=== PATIENT | female | born 1980 | race Caucasian/White ===

== ENCOUNTER 2017-04-15 22:38 | Inpatient (IN) | payer OTHER ==
[2017-04-15] MEDS ORDERED: Sodium Chloride 0.9% 1,000 ML IV ONE (22:54)
--- NOTE | 2017-04-15 22:54 | C.PDOC ---
History Of Present Illness 36 year old female that is 16 weeks was seen at the ED 2 weeks ago for vaginal bleeding. An US was done showing a normal and she was D/C home. She has been doing well until tonight she when she began feeling cramps and noticed some vaginal spotting. 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 Upon arrival to the ED she delivered a 16 week still born baby, cord was clamped and cut. Placenta was not delivered. Time Seen by Provider: 04/15/17 22:51 History Per: Patient History/Exam Limitations: no limitations Onset/Duration Of Symptoms: Hrs Quality Of Discomfort: Cramping Alleviating Factors: None Recent travel outside of the [place]: No Additional History Per: Patient Past Medical History Reviewed: Historical Data, Nursing Documentation, Vital Signs Vital Signs: Last Vital Signs Temp 98.6 F 04/15/17 22:56 Pulse 102 H 04/15/17 22:56 Resp 18 04/15/17 22:56 BP 121/80 04/15/17 22:56 Pulse Ox 97 04/15/17 22:56 - Medical History PMH: Hiatal Hernia Surgical History: No Surg Hx Family History: States: Unknown Family Hx - Social History Hx Alcohol Use: No Hx Substance Use: No - Immunization History Hx Tetanus Toxoid Vaccination: No Hx Influenza Vaccination: No Hx Pneumococcal Vaccination: No Review Of Systems Constitutional: Negative for: Fever, Chills Cardiovascular: Negative for: Chest Pain, Palpitations Respiratory: Negative for: Cough, Shortness of Breath Gastrointestinal: Negative for: Nausea, Vomiting, Abdominal Pain Genitourinary: Positive for: Vaginal Discharge, Vaginal Bleeding Physical Exam - Physical Exam Appears: In Acute Distress Skin: Normal Color, Warm, Dry Head: Atraumatic, Normacephalic Neck: Normal ROM, Supple Cardiovascular: Rhythm Regular, No Murmur Respiratory: Normal Breath Sounds, No Rales, No Rhonchi, No Wheezing Gastrointestinal/Abdominal: Soft, No Tenderness Pelvic: Normal External Exam, Other (delivery of intact 16 week still born baby) Extremity: Normal ROM Neurological/Psych: Oriented x3, Normal Speech, Normal Cognition Gait: Steady ED Course And Treatment Progress Note: Patient seen in the ED by Dr Berman. She will be admitted to the wood veneer taper floor to deliver the afterbirth. Medical Decision Making Medical Decision Making: Impression : 36 y/o female seen in the ED for early delivery of her 16 week old baby. Plan: * Blood work ordered * IV fluids given Patient delivered a 16 week old baby in the ED cord was cut and patient will be moved upstairs. Disposition - Disposition Disposition: HOSPITALIZED Disposition Time: 23:16 Condition: STABLE - POA Present On Arrival: None - Clinical Impression Clinical Impression: Spontaneous miscarriage - Scribe Statement The provider has reviewed the documentation as recorded by the Scribe Magdy Mas All medical record entries made by the Armondibe were at my direction and personally dictated by me. I have reviewed the chart and agree that the record accurately reflects my personal performance of the history, physical exam, medical decision making, and the department course for this patient. I have also personally directed, reviewed, and agree with the discharge instructions and disposition.
[2017-04-15 22:59] VITALS: BMI 23.0
[2017-04-15 23:07] VITALS: RESP 18; O2SAT 97
--- NOTE | 2017-04-15 23:10 | CP.PCM.HP ---
History of Present Illness - History of Present Illness History of Present Illness: 36 yr at 15weeks came with c/o feet coming out of the vagina at 1 pm. pt was here 2 weeks ago with vaginal bleeding. pt has been on bed rest nd using progestrone supoositry. c/o some spotting yesteday. no pain or vb today. pt went to bathroom and something was coming out from the vagina. baby deliverd in er. obhx 1 x c/s, 1 x 13week loss pmh den med pnv, progestrone suppositry all nkda psh c/s soch de pelvic exam placente is still in . clamped. ut, 16weeks size, min bleeding abd soft,non tender Present on Admission - Present on Admission Any Indicators Present on Admission: No History of DVT/PE: No History of Uncontrolled Diabetes: No Urinary Catheter: No Decubitus Ulcer Present: No Past Patient History - Infectious Disease Hx of Infectious Diseases: None - Past Social History Smoking Status: Never Smoked - PSYCHIATRIC Hx Substance Use: No - SURGICAL HISTORY Hx Surgeries: Yes Hx Section: Yes - ANESTHESIA Hx Anesthesia: Yes Hx Anesthesia Reactions: No Meds Allergies/Adverse Reactions: Allergies Allergy/AdvReac Type Severity Reaction Status Date / Time No Known Allergies Allergy Verified 04/01/17 14:24 Physical Exam - Exam External exam: NORMAL EXTERNAL EXAM (with cod coming. placente still in) Results - Vital Signs Recent Vital Signs: Last Vital Signs Temp 98.6 F 04/15/17 22:56 Pulse 102 H 04/15/17 22:56 Resp 18 04/15/17 22:56 BP 121/80 04/15/17 22:56 Pulse Ox 97 04/15/17 22:56 Assessment & Plan - Assessment and Plan (Free Text) Assessment: 36yr s/o 16weeks non viable delivery/ placente in situ Plan: admit to l&d npo/ivf labs cyotec pitcin anceg 1 gm cont close observation
[2017-04-15 23:14] LABS: BASO % 0.1 % (0.0-2.0); EOS # 0.1 K/uL (0.0-0.7); EOS % 0.6 % (0.0-4.0); HEMATOCRIT 37.6 % (34.0-47.0); LYMPH # 3.4 K/uL (1.0-4.3); LYMPH % 17.3 % (20.0-40.0); MEAN CELL VOLUME 84.4 fL (81.0-99.0); MEAN CORPUSCULAR HEMOGLOBIN 28.7 pg (27.0-31.0); MONO % 4.9 % (0.0-10.0); RED CELL DISTRIBUTION WIDTH 13.3 % (11.5-14.5); WHITE BLOOD COUNT 19.8 K/uL (4.8-10.8)
[2017-04-15] MEDS ORDERED: Oxytocin 30 UNIT 30 UNITS/500 ML BAG IV PRN (23:23)
[2017-04-15 23:24] LABS: ALB/GLOB RATIO 1.1 (1.0-2.1); ALKALINE PHOSPHATASE 97 U/L (38-126); ALT/SGPT 32 U/L (9-52); AST/SGOT 24 U/L (14-36); BILIRUBIN,TOTAL 0.5 mg/dL (0.2-1.3); BLOOD UREA NITROGEN 4 mg/dL (7-17); CALCIUM 8.9 mg/dl (8.6-10.4); CARBON DIOXIDE 24 mmol/L (22-30); CHLORIDE 99 mmol/L (98-107); GFR AFRICAN-AMERICAN > 60; GLUCOSE,RANDOM 83 mg/dL (65-105); POTASSIUM 3.9 mmol/L (3.6-5.2); SODIUM 133 mmol/L (132-148); TOTAL PROTEIN 7.7 g/dL (6.3-8.3)
[2017-04-15] MEDS ORDERED: Lactated Ringer's 500 ML IV ONE (23:26)
[2017-04-15] MEDS ORDERED: Oxytocin 30 UNIT 30 UNITS/500 ML BAG IV ONE (23:54)
[2017-04-16] MEDS ORDERED: Nalbuphine 20 mg/ml Inj (1 ml) IVP SCH
[2017-04-16] MEDS ORDERED: Nalbuphine 20 mg/ml Inj (1 ml) ONE (00:10)
[2017-04-16] MEDS: ceFAZolin IV 1 gm in Dextrose 1 GM/50 ML BAG IVPB SCH ×2 (01:00→07:47)
--- NOTE | 2017-04-16 04:31 | CP.PCM.PN ---
Subjective - Date & Time of Evaluation Date of Evaluation: 04/16/17 Time of Evaluation: 04:30 - Subjective Subjective: pt was examined at bed side. baby deliverd at 10 pm . pitocin started at 11.30. placente not deliverd after 6 hr of delivery. pelvic exam old blod cervix open. cord of the placente lost Objective - Vital Signs/Intake and Output Vital Signs (last 24 hours): Temp Pulse Resp BP Pulse Ox 98.6 F 102 H 18 121/80 97 04/15/17 22:56 04/15/17 22:56 04/15/17 22:56 04/15/17 22:56 04/15/17 22:56 - Medications Medications: Current Medications Cefazolin Sodium/Dextrose (Ancef Iv 1 Gm Duplex) 1 gm in 50 mls @ 100 mls/hr IVPB Q8H [facility] Last Admin: 04/16/17 01:00 Dose: 100 mls/hr Oxytocin (Pitocin) 30 units in 500 mls @ 2 mls/hr IV .Q24H PRN; Protocol; 0.002 UNIT/MIN PRN Reason: Labor Last Admin: 04/16/17 00:30 Dose: 2 mls/hr Nalbuphine HCl (Nubain) 10 mg IVP Q4 [facility] Last Admin: 04/16/17 01:00 Dose: 10 mg - Labs Labs: 04/15/17 23:08 04/15/17 23:08 Assessment and Plan - Assessment and Plan (Free Text) Assessment: 36 yr s/p nn viable delvery with retained placente Plan: plan suction d&c. npo/ivf anthesia aware antibitics informed consent taken. r/a/b disc
[2017-04-16] MEDS ORDERED: Propofol 10 mg/ml Inj (20 ML) ONE (05:33)
[2017-04-16] MEDS: Oxytocin 30 UNIT 30 UNITS/500 ML BAG IV SCH ×2 (05:50→07:00)
[2017-04-16] MEDS ORDERED: Oxycodone/Acetaminophen 5/325 mg Tab PO PRN ×2 (06:09→07:44)
--- NOTE | 2017-04-16 06:09 | PCM.SURG1 ---
Surgeon's Initial Post Op Note - Surgeon's Notes Surgeon: dr engle [employer] Repairer: none Type of Anesthesia: General LMA Anesthesia Administered By: dr fallon Pre-Operative Diagnosis: 36 yr s/p 16week delivery retained placente Operative Findings: see the op reort Post-Operative Diagnosis: same Operation Performed: d&c, ob cuettage Specimen/Specimens Removed: placente Estimated Blood Loss: EBL {In ML}: 200 Blood Products Given: N/A Drains Used: No Drains Post-Op Condition: Good Date of Surgery/Procedure: 04/16/17 Time of Surgery/Procedure: 06:20
[2017-04-16] MEDS ORDERED: Oxycodone/Acetaminophen 5/325 mg Tab ONE ×2 (07:39→07:41)
[2017-04-16 12:10] LABS: HEMATOCRIT 30.7 % (34.0-47.0); MEAN CELL VOLUME 85.3 fL (81.0-99.0); MEAN CORPUSCULAR HEMOGLOBIN 28.8 pg (27.0-31.0); MEAN CORPUSCULAR HGB CONC 33.8 g/dL (33.0-37.0); MEAN PLATELET VOLUME 8.1 fL (7.2-11.7); RED CELL DISTRIBUTION WIDTH 13.4 % (11.5-14.5); WHITE BLOOD COUNT 15.2 K/uL (4.8-10.8)
[2017-04-16 19:46] VITALS: BP 100/69; PULSE 73; TEMP 97.7
--- NOTE | 2017-04-24 18:31 | OP ---
PROCEDURE DATE: 04/16/2017 PREOPERATIVE DIAGNOSIS: A 36-year-old status post 16-week delivery with a retained placenta. POSTOPERATIVE DIAGNOSIS: A 36-year-old status post 16-week delivery with a retained placenta. SURGEON: Yakov Berman MD ROVING MACHINE OPERATOR: None. ANESTHESIA: General anesthesia. ANESTHESIOLOGIST: Dustin Arce DO ESTIMATED BLOOD LOSS: 200 mL. PROCEDURE PERFORMED: D and C OB curettage. COMPLICATION: None. DESCRIPTION OF PROCEDURE: After informed consent was obtained, the patient was brought to the operating room, placed on the table where general anesthesia was given. When anesthesia was found to be sufficient, she was prepped and draped in normal sterile fashion. Anterior lip of the cervix was grasped with a tenaculum. The cervix was dilated. After that, OB curette was used to take out the placenta, all the placenta were removed. It was bleeding, so Pitocin was started when we were in the middle of the case. The blood was suctioned. Curettage was done till all the products were taken out. It was sent to Pathology. taken out, it was hemostatic. No more bleeding. Pitocin was kept running. The patient tolerated the procedure well. Laps, sponge, and instrument counts correct x2. The patient was given antibiotics before the procedure and continued after the delivery. Yakov Berman MD
== END 2017-04-16 15:30 | disposition home or self-care (01) | DRG 770 ==
LOC: C.ER 22:38 → C.4D 22:55
PROVIDERS: ADMIT Obstetrics & Gynecology; ATTEND Obstetrics & Gynecology
PROC: 10D17Z9 Manual Extraction of Products of Conception, Retained, Via Natural or Artificial Opening (ICD-10-PCS; principal; 2017-04-16)
DX: O03.4 Incomplete spontaneous abortion without complication (principal); O41.1220 Chorioamnionitis, second trimester, not applicable or unspecified; Z3A.16 16 weeks gestation of pregnancy; O09.522 Supervision of elderly multigravida, second trimester

== ENCOUNTER 2018-07-26 21:21 | Observation (INO) | payer OTHER ==
[2018-07-26] MEDS ORDERED: Sodium Chloride 0.9% 1,000 ML IV ONE (21:27)
[2018-07-26] MEDS ORDERED: Sodium Chloride 0.9% 1,000 ML ONE (21:27)
[2018-07-26 21:28] VITALS: BMI 26.6
[2018-07-26 21:45] LABS: EOS # 0.1 K/uL (0.0-0.7); MONO # 0.6 K/uL (0.0-0.8); NEUT # 9.3 K/uL (1.8-7.0)
[2018-07-26 21:54] LABS: BASO % 0.3 % (0.0-2.0); HEMOGLOBIN 11.5 g/dL (11.0-16.0); LYMPH % 22.7 % (20.0-40.0); MEAN CORPUSCULAR HEMOGLOBIN 28.9 pg (27.0-31.0); MEAN CORPUSCULAR HGB CONC 32.9 g/dL (33.0-37.0); MEAN PLATELET VOLUME 7.9 fL (7.2-11.7); MONO % 4.6 % (0.0-10.0); NEUT % 71.4 % (50.0-75.0); RBC 3.99 Mil/uL (3.80-5.20); RED CELL DISTRIBUTION WIDTH 13.3 % (11.5-14.5)
[2018-07-26 22:10] LABS: ALB/GLOB RATIO 1.2 (1.0-2.1); ALT/SGPT 10 U/L (9-52); AST/SGOT 22 U/L (14-36); BLOOD UREA NITROGEN 6 mg/dL (7-17); CALCIUM 8.8 mg/dl (8.6-10.4); GFR NON-AFRICAN AMERICAN > 60
[2018-07-26 23:18] LABS: SQUAMOUS EPITHIAL 3 /hpf (0-5); URINE BACTERIA RARE (<OCC); URINE BILIRUBIN NEGATIVE (NEGATIVE); URINE BLOOD 1+ (NEGATIVE); URINE CLARITY Clear (Clear); URINE COLOR Straw (YELLOW); URINE GLUCOSE (UA) NORMAL (Normal); URINE LEUKOCYTE ESTERASE NEG Leu/uL (Negative); URINE PROTEIN NEGATIVE (NEGATIVE); URINE UROBILINOGEN NORMAL mg/dL (0.2-1.0)
--- NOTE | 2018-07-26 23:29 | C.PDOC ---
History Of Present Illness 38 year old female referred by Dr. Berman for vaginal bleeding. Patient is miscarriage 2, she is 15 weeks , prior US showed IUP. Patient has miscarriage at 8 weeks and 15 weeks previously. Time Seen by Provider: 07/26/18 21:24 Chief Complaint (Nursing): Female Genitourinary History Per: Patient History/Exam Limitations: no limitations Onset/Duration Of Symptoms: Mins Current Symptoms Are (Timing): Still Present Alleviating Factors: None Recent travel outside of the [place]: No Abnormal Vaginal Bleeding: Yes Past Medical History Reviewed: Historical Data, Nursing Documentation, Vital Signs Vital Signs: Last Vital Signs Temp 98.7 F 07/26/18 21:22 Pulse 74 07/26/18 23:12 Resp 16 07/26/18 23:12 BP 106/71 07/26/18 23:12 Pulse Ox 100 07/26/18 23:12 - Medical History PMH: Hiatal Hernia Denies: Depression, Diabetes, HTN - [facility] (04/15/17) Family History: States: Unknown Family Hx - Social History Hx Alcohol Use: No Hx Substance Use: No - Immunization History Hx Tetanus Toxoid Vaccination: No Hx Influenza Vaccination: No Hx Pneumococcal Vaccination: No Review Of Systems Constitutional: Negative for: Fever, Chills Cardiovascular: Negative for: Chest Pain, Palpitations Respiratory: Negative for: Cough, Shortness of Breath Gastrointestinal: Negative for: Nausea, Vomiting Genitourinary: Positive for: Vaginal Bleeding Neurological: Negative for: Weakness, Numbness Physical Exam - Physical Exam Appears: Non-toxic, Other ( female. In mild distress.) Skin: Normal Color, Warm, Dry Head: Atraumatic, Normacephalic Eye(s): bilateral: Normal Inspection Oral Mucosa: Moist Chest: Symmetrical, No Tenderness Cardiovascular: Rhythm Regular Respiratory: Normal Breath Sounds, No Rales, No Rhonchi, No Wheezing Gastrointestinal/Abdominal: Soft, No Tenderness Pelvic: Vaginal Bleeding (Heavy, as per OB evaluation) Neurological/Psych: Oriented x3, Normal Speech ED Course And Treatment - Laboratory Results Result Diagrams: 07/26/18 21:35 07/26/18 21:35 Lab Results: Total Bilirubin 0.2 mg/dL (0.2-1.3) 07/26/18 21:35 AST 22 U/L (14-36) 07/26/18 21:35 ALT 10 U/L (9-52) 07/26/18 21:35 Alkaline Phosphatase 73 U/L (38-126) 07/26/18 21:35 Total Protein 7.4 g/dL (6.3-8.3) 07/26/18 21:35 Albumin 4.0 g/dL (3.5-5.0) 07/26/18 21:35 Globulin 3.4 gm/dL (2.2-3.9) 07/26/18 21:35 Albumin/Globulin Ratio 1.2 (1.0-2.1) 07/26/18 21:35 Beta HCG, Quant 62627.00 mIU/ML 07/26/18 21:35 Lab Interpretation: Normal (QCHG 92,772 H, A+) O2 Sat by Pulse Oximetry: 100 Pulse Ox Interpretation: Normal Reevaluation Time: 23:28 Reassessment Condition: Improved - Physician Consult Information Outcome Of Conversation: 2129, 2229 d/w Dr. Berman, ok to adm. 2199: d/w Dr. Cornelius- OB Tire Worker, ok to adm Medical Decision Making Medical Decision Making: threatened AB Disposition Doctor Will See Patient In The: Hospital Counseled Patient/Family Regarding: Studies Performed, Diagnosis - Disposition Disposition: HOSPITALIZED Disposition Time: 23:29 Condition: GOOD - Clinical Impression Clinical Impression: Threatened - Scribe Statement The provider has reviewed the documentation as recorded by the Scribe Junior Calvo All medical record entries made by the Scribe were at my direction and pe rsonally dictated by me. I have reviewed the chart and agree that the record accurately reflects my personal performance of the history, physical exam, medical decision making, and the department course for this patient. I have also personally directed, reviewed, and agree with the discharge instructions and disposition.
[2018-07-27] MEDS ORDERED: Lactated Ringer's 1,000 ML IV SCH (01:00)
[2018-07-27 04:57] VITALS: RESP 18
--- NOTE | 2018-07-27 08:25 | US ---
PROCEDURE: HISTORY: LMP unknown COMPARISON: None TECHNIQUE: Transabdominal scanning of the maternal pelvis and a 2nd/ 3rd trimester with image documentation FINDINGS: Fetus: Single intrauterine gestation heart rate: Present at 143 beats per minute presentation: Breech Placenta: Anteriorwithout previa or abruption cervix approximately 3.34 cm away from the covering the internal cervical os. Amniotic fluid : Grossly unremarkable anatomy: Limited assessment biometrics: Gestational age by ultrasound: 15 weeks 1 day +/-1 week 0 days Estimated weight: 114.79g +/-17 g Maternal factors: Uterus: Unremarkable. No myometrial masses Cervix:3.3 cm length Free fluid: None Right ovary with Doppler flow unremarkable appearing at 2.7 x 1.8 x 2.4 cm. Left ovary also unremarkable in appearing with Doppler flow measuring 2.6 x 2.5 x 3.1 cm. IMPRESSION: Single intrauterine gestation with normal cardiac activity-whose menstrual age by ultrasound parameters is 15 weeks 1 day +/-1 week 0 day with an estimated date of delivery by ultrasound estimates 01/16/2019 Limited anatomy-per gestational age. presentation-breech. No previa .
[2018-07-27 08:36] VITALS: PULSE 70
[2018-07-27] MEDS ORDERED: Influenza Vaccine 60 mcg/0.5 mL SYR (4YR UP) IM ONE (10:32)
[2018-07-27 11:32] VITALS: BP 98/68; TEMP 98.2; O2SAT 100
--- NOTE | 2018-07-27 12:40 | OBADHP ---
Datetime: 07/27/2018 08:56 Weight - Estimated: 115 Presentation-Admit: Breech Gestation - Est Wks by US: 15.1 Vital Signs Provider: Reviewed; Within Normal Limits Datetime: 07/26/2018 23:00 Admit Comment, IP Provider: 38 yo female with an IUP at 15 weeks and presented to the ER wi th c/o of vaginal bleeding x 1 and feeling like if something is in her vagina. Denies gush of fluid o r vaginal discharge. Denies recent intercourse. Past OB Hx: 1 withut complications 2 spontaneous miscariages in the past PMHX and PSHx unremarkable Meds PNV NKDA Social HX denies x 3 PE: as noted above A/P at 15 weeks per dates and US Hx of 2 previous losses Vaginal bleeding and painless Threatened Case discussed with Dr. Berman and requested to order an US, labs and to admit patient for observa tion with close monitoring of vaginal bleeding. Pt reassured and aware of plan of care and agrees Orders placed (Annotations: Data stored by CPN on behalf of user) Pelvic Type - PN: Adequate Extremities - PN: Normal Abdomen - PN: Normal Back - PN: Normal Breast - PN: Not Done Lungs - PN: Normal Heart - PN: Normal Thyroid - PN: Normal Neurologic - PN: Normal HEENT - PN: Normal General - PN: Normal Membranes, Provider: Intact Comments, ACOG Physical Exam: SSE reveal small bright red blood in vagina and dark blood but no tiss ue Cervix closed Uterus c/w IUP at 15 weeks IP Chief Complaint: Vaginal bleeding Dilatation, Provider: 0 Genitourinary Exam: Normal DTRs - PN: Normal IP Adm Impression: Threatened IP Admit Plan: Observation/Evaluation (Annotations: Data stored by CPN on behalf of user)
== END 2018-07-27 11:35 | disposition home or self-care (01) ==
LOC: C.ER 21:21 → INTOOBSV 23:26 → C.4M 23:26
PROVIDERS: ADMIT Obstetrics & Gynecology; ATTEND Obstetrics & Gynecology
DX: O20.0 Threatened abortion (principal); Z3A.15 15 weeks gestation of pregnancy
CPT/HCPCS: 76815; 80053; 81001; 84702; 85025; 86850; 86900; 96360; G0378; J7030; J7120